=== PATIENT | male | born 1990 | race Caucasian/White ===

== ENCOUNTER 2020-04-30 16:20 | Inpatient (IN) | payer OTHER ==
[2020-04-30 17:31] VITALS: BMI 24.7
--- NOTE | 2020-04-30 19:05 | BHS.RME ---
Substance Use & Tx History - Substance Use History Heroin Substance amount: 10 bags Frequency of use: Daily Substance route: Injection (ex: intravenous or skin popping) Date of Last Use: 04/29/20 Cocaine- Powder Substance amount: $10 Frequency of use: Once a month Substance route: Inhalation (ex: sniffing or snorting), Smoking Date of Last Use: 04/27/20 Xanax Substance amount: 2-6 mg Frequency of use: Daily Substance route: Oral Date of Last Use: 04/30/20 Nicotine Substance amount: 20 Frequency of use: Daily Substance route: Smoking Date of Last Use: 04/30/20 - Last Treatment Date of last treatment: 1 yr ago Treatment type: Substance Use Disorder (THU) Where was last treatment: Rehab Physical/Psych/Mental Status - Behavior General Behavior: Increased activity (restlessness, agitation) Eye Contact: Normal - Cooperativeness Cooperativeness: Cooperative - Thinking Thought Processes: Goal Directed Thought content: Future oriented - Physical Health Problems Is patient presently having any pain?: No Does patient presently have any injuries (include location): No Does patient currently have a fever: No COWS - Scale Resting Pulse: 0= [place] 80 or Below Sweatin=Flushed/Facial Moisture Restless Observation: 1= Difficult to Sit Still Pupil Size: 2= Moderately Dilated Bone or Joint Aches: 1= Mild Discomfort (r/t withdrawal) Runny Nose/ Eye Tearin= Nasal Congestion GI Upset > 30mins: 2= Nausea/Diarrhea Tremor Observation: 2= Slight Tremor Visible Yawning Observation: 1= 1-2x During Session Anxiety or Irritability: 2=Irritable/Anxious Goose Flesh Skin: 0=Smooth Skin COWS Score: 14 CIWA Nausea/Vomitin Muscle Tremors: 3 Anxiety: 3 Agitation: 3 Paroxysmal Sweats: 3 (Increased facial moisture) Orientation: 1-Uncertain about Date Tacttile Disturbances: 1-Very Mild Itch/Numbness Auditory Disturbances: 0-None Visual Disturbances: 0-None Headache: 0-None Present CIWA-Ar Total Score: 17
--- NOTE | 2020-04-30 19:08 | HP ---
COWS - Scale Resting Pulse: 0= [place] 80 or Below Sweatin=Flushed/Facial Moisture (Increased facial moisture) Restless Observation: 1= Difficult to Sit Still Pupil Size: 2= Moderately Dilated (Pupils = 4 mm) Bone or Joint Aches: 1= Mild Discomfort (r/t withdrawal) Runny Nose/ Eye Tearin= Nasal Congestion GI Upset > 30mins: 2= Nausea/Diarrhea (Nausea w/o diarrhea) Tremor Observation: 2= Slight Tremor Visible Yawning Observation: 1= 1-2x During Session Anxiety or Irritability: 2=Irritable/Anxious Goose Flesh Skin: 0=Smooth Skin COWS Score: 14 CIWA Score Nausea/Vomitin Muscle Tremors: 3 Anxiety: 3 Agitation: 3 Paroxysmal Sweats: 3 (Increased facial moisture) Orientation: 1-Uncertain about Date Tacttile Disturbances: 1-Very Mild Itch/Numbness Auditory Disturbances: 0-None Visual Disturbances: 0-None Headache: 0-None Present CIWA-Ar Total Score: 17 - Admission Criteria [facility]ASAS Guidelines: Admission for Medically Managed Detox: Requires at least one of the followin. CIWA greater than 12 2. Seizures within the past 24 hours 3. Delirium tremens within the past 24 hours 4. Hallucinations within the past 24 hours 5. Acute intervention needed for co occurring medical disorder 6. Acute intervention needed for co occurring psychiatric disorder 7. Severe withdrawal that cannot be handled at a lower level of care (continued vomiting, continued diarrhea, abnormal vital signs) requiring intravenous medication and/or fluids 8. Patient presents the following: CIWA greater than 12 Admission Criteria Met: Admission criteria met Admission [facility] Chief Complaint: "Having withdrawals from heroin and xanax. Goal is not to use drugs ever again" Allergies/Adverse Reactions: Allergies Allergy/AdvReac Type Severity Reaction Status Date / Time No Known Allergies Allergy Verified 04/30/20 19:08 History of Present Illness: 30 yo presents w/ opioid and anxiolytic withdrawal, seeking detox. Has a current prescription for Suboxone. States hasn't taken in 2 months, despite picking up medication. [facility] he spoke to his provider and told he did not need/want Suboxone anymore. Patient consents to having provider called in a.m. [facility] provider is in [facility]. MOR: 0.0 UTox: + FAWN/FEN/MOP/BZO Denies seizures, blackouts, or overdoses. Heroin use use began at age 28. Currently uses 10 bags/day/IV. Denies sharing needles or works. Has a Narcan kit. Cocaine use since age 15. Currently using $10/month. Smokes and sniffs. Benzo use since age 27. Currently uses smokes 2-6 mg/day. Nicotine use since age 15. Currently smokes 1 PPD. States able to stay the 6 days for detox. PMHx: Nerve pain (hx Fx C-3) - on gabapentin MHHx: Anxious. PTSD. Depression. Denies thoughts of harming self or others. SHx: Homeless. Unemployed. Denies legal issues. Patient Name: Abhi Oconnor Date: 1990 Address: [address] [place] [address] Sex: Male Rx Written Rx Dispensed Drug Quantity Days Supply Prescriber Name Payment Method Dispenser 04/05/2020 04/10/2020 buprenorphine-naloxone 8-2 mg sl film 90 30 Geovanni, Larryza [employer] [facility] 03/13/2020 03/13/2020 buprenorphine-naloxone 8-2 mg sl film 90 30 Geovanni, Larryza [employer] [facility] 02/16/2020 02/16/2020 dextroamp-amphetamin 30 mg tab 30 30 Geovanni, Vj [employer] [facility] 02/07/2020 02/09/2020 buprenorphine-naloxone 8-2 mg sl film 90 30 GeovanniLarryza [employer] [facility] 01/05/2020 01/12/2020 dextroamp-amphetamin 30 mg tab 30 30 GeovanniLarryza [employer] [facility] 01/05/2020 01/12/2020 buprenorphine-naloxone 8-2 mg sl film 90 30 Geovanni, Azza [employer] [facility] 12/08/2019 12/12/2019 dextroamp-amphetamin 30 mg tab 30 30 GeovanniLarryza [employer] [facility] 12/08/2019 12/12/2019 buprenorphine-naloxone 8-2 mg sl film 90 30 GeovanniLarryza [employer] [facility] 11/10/2019 11/11/2019 dextroamp-amphetamin 30 mg tab 30 30 GeovanniVj [employer] [facility] 11/10/2019 11/10/2019 suboxone 8 mg-2 mg sl film 90 30 Vj Galarza [employer] [facility] 10/11/2019 10/11/2019 dextroamp-amphetamin 30 mg tab 30 30 Vj Galarza [employer] [facility] 10/11/2019 10/11/2019 suboxone 8 mg-2 mg sl film 90 30 Vj Galarza [employer] [facility] 09/15/2019 09/15/2019 buprenorphine-naloxone 8-2 mg sl film 90 30 Vj Galarza [employer] [facility] 09/15/2019 09/15/2019 dextroamp-amphetamin 30 mg tab 7 7 Vj Galarza [employer] [facility] 09/01/2019 09/01/2019 buprenorphine-naloxone 8-2 mg sl film 42 14 Vj Galarza [employer] [facility] 08/15/2019 08/15/2019 buprenorphine-naloxone 8-2 mg sl film 42 14 Vj Galarza [employer] [facility] 07/21/2019 07/21/2019 buprenorphine-naloxone 8-2 mg sl film 42 14 India Tolbert [employer] [facility] 06/30/2019 06/30/2019 buprenorphine-naloxone 8-2 mg sl film 42 14 [place] [employer] [facility] Date: 1990 Address: [address] [place] [address] Sex: Male Rx Written Rx Dispensed Drug Quantity Days Supply Prescriber Name Payment Method Dispenser 04/10/2020 04/11/2020 dextroamp-amphetamin 30 mg tab 30 30 Arias Howard A, DO [facility] Exam Limitations: No Limitations - Ebola screening Have you traveled outside of the country in the last 21 days: No (Denies COVID exposure) Have you had contact with anyone from an Ebola affected area: No Have you been sick,other than usual withdrawal symptoms: No Do you have a fever: No - Review of Systems Constitutional: Chills, Diaphoresis, Changes in sleep (Difficulty falling and staying asleep), Weight Stable EENT: reports: Nose Congestion, Dental Problems Respiratory: reports: No Symptoms reported Cardiac: reports: No Symptoms Reported GI: reports: Nausea : reports: No Symptoms Reported Musculoskeletal: reports: Other (Whole body hurts r/t withdrawal) Integumentary: reports: No Symptoms Reported Neuro: reports: Numbness (from sitting in chair) Endocrine: reports: Increased Thirst Hematology: reports: No Symptoms Reported Psychiatric: reports: Judgement Intact, Mood/Affect Appropiate, Agitated, Anxious, Depressed Patient History - PPD History Previous Implant?: Yes Documented Results: Negative w/o proof Implanted On Prior R Admission?: No PPD to be Administered?: Yes - Smoking Cessation Smoking history: Current every day smoker Have you smoked in the past 12 months: Yes Aproximately how many cigarettes per day: 20 Hx Chewing Tobacco Use: No Initiated information on smoking cessation: Yes 'Breaking Loose' booklet given: 04/30/20 - Substance & Tx. History Hx Alcohol Use: No Hx Substance Use: Yes Substance Use Type: Cocaine, Heroin, Opiates, Tranquilizers Hx Substance Use Treatment: Yes (detox, rehab, Suboxone) Admission Physical Exam BHS - Vital Signs Vital Signs: Vital Signs - 24 hr 04/30/20 17:29 Temperature 97.4 F L Pulse Rate 62 Respiratory 18 Rate Blood Pressure 120/70 - Physical General Appearance: Yes: Nourished, Mild Distress, Tremorous, Irritable, Sweating (Increased facial moisture), Anxious HEENTM: Yes: Hearing grossly Normal, Normocephalic, Normal Voice, NELDA (Pupils = 4 mm), Pharynx Normal, Nasal Congestion Respiratory: Yes: Lungs Clear, Normal Breath Sounds, No Respiratory Distress Neck: Yes: No masses,lesions,Nodules Breast: Yes: Breast Exam Deferred Cardiology: Yes: Regular Rhythm, Regular Rate, S1, S2, Bradycardia (HR: 58) Abdominal: Yes: Non Tender, Flat, Soft, Increased Bowel Sounds Genitourinary: Yes: Within Normal Limits Back: Yes: Normal Inspection Musculoskeletal: Yes: full range of Motion, Gait Steady Extremities: Yes: Normal Capillary Refill, Tremors 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 No increased warmth or erythema of track hernandez) Lymphatic: Yes: Within Normal Limits - Diagnostic (1) Opioid dependence with withdrawal Current Visit: Yes Status: Acute (2) Sedative, hypnotic or anxiolytic dependence with withdrawal, uncomplicated Current Visit: Yes Status: Acute (3) Cocaine dependence, uncomplicated Current Visit: Yes Status: Chronic (4) Nicotine dependence, unspecified, uncomplicated Current Visit: Yes Status: Chronic Qualifiers: Nicotine product type: cigarettes Qualified Code(s): F17.210 - Nicotine dependence, cigarettes, uncomplicated (5) History of cervical fracture Current Visit: Yes Status: Chronic (6) Neuropathy Current Visit: Yes Status: Chronic (7) Track hernandez due to intravenous drug abuse Current Visit: Yes Status: Chronic Cleared for Admission [facility] - Detox or Rehab [facility] Level of Care: Medically Managed Detox Regimen/Protocol: Ativan, Methadone Claeared for Rehab Admission: No Breathalyzer - Breathalyzer Breathalyzer: 0 Urine Drug Screen - Test Device Lot number: [id number] Expiration date: 11/15/21 - Control Is test valid?: Yes - Results Drug screen NEGATIVE: No Urine drug screen results: FAWN-Cocaine, FEN-Fentanyl, MOP-Opiates, BZO-B enzodiazepines Inpatient Rehab Admission - Rehab Decision to Admit Inpatient rehab admission?: No
[2020-04-30] MEDS ORDERED: cloNIDine HCL 0.1 MG TABLET PO PRN (19:35)
[2020-04-30] MEDS ORDERED: METHADONE HCL 10 MG TABLET (FOR DETOX USE ONLY) PO ONE (19:35)
[2020-04-30] MEDS ORDERED: MENTHOL/PHENOL 1 EACH UD MM PRN (19:35)
[2020-04-30] MEDS ORDERED: ACETAMINOPHEN 325 MG TABLET (FP) PO PRN ×2 (19:35)
[2020-04-30] MEDS ORDERED: LORazepam 1 MG TABLET PO PRN (19:35)
[2020-04-30] MEDS ORDERED: BISMUTH SUBSALICYLATE 524 MG/30 ML UD PO PRN (19:35)
[2020-04-30] MEDS ORDERED: IBUPROFEN 400 MG TABLET (FP) PO PRN (19:35)
[2020-04-30] MEDS ORDERED: MAG HYDROX/AL HYDROX/SIMETH 30 ML UNIT-DOSE CUP PO PRN (19:35)
[2020-04-30] MEDS ORDERED: MAGNESIUM HYDROX 2400MG/30ML ORAL SUSPENSION 30 ML CUP PO PRN (19:35)
[2020-04-30] MEDS ORDERED: MAGNESIUM CITRATE 300 ML BOTTLE PO PRN (19:35)
[2020-04-30] MEDS ORDERED: ONDANSETRON *ODT* 4 MG TABLET SL PRN (19:35)
[2020-04-30] MEDS ORDERED: BENZOCAINE 20 % GEL TUBE MM PRN (19:40)
[2020-04-30] MEDS ORDERED: LORazepam 2 MG TABLET PO ONE (20:00)
--- OUTSIDE RECORDS SUMMARY | 2020-04-30 20:59 | XMS ---
:1990 Author Organization [facility] Care Team Providers Name Role Phone MARIA ESTHER MARQUES, GATO MARQUES Unavailable Unavailable MICHAEL VETERINARY MEDICAL OFFICER, VETERINARY MEDICAL OFFICER Unavailable Unavailable MD Zoe Unavailable Unavailable MD Zoe Unavailable Unavailable MD Zoe Unavailable Unavailable MD Zoe Unavailable Unavailable Radhames Laguerre MD Unavailable Unavailable Radhames Laguerre MD Unavailable Unavailable Radhames Laguerre MD Unavailable Unavailable Radhames Laguerre MD Unavailable Unavailable Radhames Laguerre MD Unavailable Unavailable Radhames Laguerre MD Unavailable Unavailable Radhames Laguerre MD Unavailable Unavailable Radhames Laguerre MD Unavailable Unavailable Radhames Laguerre MD Unavailable Unavailable Radhames Laguerre MD Unavailable Unavailable Radhames Laguerre MD Unavailable Unavailable Radhames Laguerre MD Unavailable Unavailable Radhames Laguerre MD Unavailable Unavailable Radhames Laguerre MD Unavailable Unavailable Radhames Laguerre MD Unavailable Unavailable Radhames Laguerre MD Unavailable Unavailable Radhames Laguerre MD Unavailable Unavailable Radhames Laguerre MD Unavailable Unavailable Radhames Laguerre MD Unavailable Unavailable Radhames Laguerre MD Unavailable Unavailable Radhames Laguerre MD Unavailable Unavailable Radhames Laguerre MD Unavailable Unavailable Radhames Laguerre MD Unavailable Unavailable Radhames Laguerre MD Unavailable Unavailable Radhames Laguerre MD Unavailable Unavailable Radhames Laguerre MD Unavailable Unavailable Radhames Laguerre MD Unavailable Unavailable Radhames Laguerre MD Unavailable Unavailable Radhames Laguerre MD Unavailable Unavailable Radhames Laguerre MD Unavailable Unavailable Radhames Laguerre MD Unavailable Unavailable [place], Radhames MD Unavailable Unavailable [place], Radhames MD Unavailable Unavailable Shade, Radhames MD Unavailable Unavailable [place], Radhames MD Unavailable Unavailable [place], Radhames MD Unavailable Unavailable Shade, Radhames MD Unavailable Unavailable [place], Radhames MD Unavailable Unavailable Shade, Radhames MD Unavailable Unavailable Shade, Radhames MD Unavailable Unavailable [place], Radhames MD Unavailable Unavailable [place], Radhames MD Unavailable Unavailable [place], Radhames MD Unavailable Unavailable [place], Radhames MD Unavailable Unavailable [place], Radhames MD Unavailable Unavailable [place], Radhames MD Unavailable Unavailable [place], Radhames MD Unavailable Unavailable Shade, Radhames MD Unavailable Unavailable Shade, Radhames MD Unavailable Unavailable [place], Radhames MD Unavailable Unavailable [place], Radhames MD Unavailable Unavailable [place], Radhames MD Unavailable Unavailable Shade, Radhames MD Unavailable Unavailable [place], Radhames MD Unavailable Unavailable [place], Radhames MD Unavailable Unavailable RICKY MORROW MD Unavailable Unavailable PALMER MORROW, ZOE MORROW Unavailable Unavailable María HOLLEY MD, MD Unavailable Unavailable DULCE MORROW MD Unavailable Unavailable Cori RODRIGUEZ MD Unavailable Unavailable JERALD ARIAS Unavailable Unavailable SHEIKH ODALYS MD Unavailable Unavailable Ramy Strauss MD Unavailable Unavailable Ramy Strauss MD Unavailable Unavailable Ramy Strauss MD Unavailable Unavailable Ofe Horn MD Unavailable Unavailable Ofe Horn MD Unavailable Unavailable Ofe Horn MD Unavailable Unavailable Ofe Horn MD Unavailable Unavailable Ofe Horn MD Unavailable Unavailable MEMBONERISSA MARQUES PA Unavailable Unavailable Darby Unavailable Unavailable Cohen Unavailable Unavailable Cohen Unavailable Unavailable Cohen Unavailable Unavailable Cohen Unavailable Unavailable Cohen Unavailable Unavailable Re-disclosure Warning The records that you are about to access may contain information from federally- assisted alcohol or drug abuse programs. If such information is present, then the following federally mandated warning applies: This information has been disclosed to you from records protected by federal confidentiality rules (42 CFR part 2). The federal rules prohibit you from making any further disclosure of this information unless further disclosure is expressly permitted by the written consent of the person to whom it pertains or as otherwise permitted by 42 CFR part 2. A general authorization for the release of medical or other information is NOT sufficient for this purpose. The Federal rules restrict any use of the information to criminally investigate or prosecute any alcohol or drug abuse patient.The records that you are about to access may contain highly sensitive health information, the redisclosure of which is protected by Article 27-F of the [facility] Public Health law. If you continue you may haveaccess to information: Regarding HIV / AIDS; Provided by facilities licensed or operated by the [facility] Office of Mental Health; or Provided by the [facility] Office for People With Developmental Disabilities. If such information is present, then the following [facility] mandated warning applies: This information has been disclosed to you from confidential records which are protected by state law. State law prohibits you from making any further disclosure of this information without the specific written consent of the person to whom it pertains, or as otherwise permitted by law. Any unauthorized further disclosure in violation of state law may result in a fine or [place] health [facility] facility sentence or both. A general authorization for the release of medical or other information is NOT sufficient authorization for further disclosure. Allergies and Adverse Reactions Type Description Substance Reaction Status Data Source(s ) D No Known Allergies No Known Allergies [facility] Drug allergy No Known Allergies No Known Allergies [facility] No Information No Information No Information [address] Encounters Encounter Providers Location Date Indications Data Source(s ) Emergency Attender: Luciano MONROY XR-ED 06/02/2019 ERA BRENDA Horn MD 04:45:50 AM [facility] 06/02/2019 07:56:00 AM EDT ERA Patient discharged. Outpatient Attender: GEMMA 05/06/2019 07:35:00 [facility] RODRIGUEZ MD [facility] Outpatient Attender: GEMMA 04/29/2019 07:26:00 [facility] RODRIGUEZ MD [facility] Emergency Attender: CARLOS 12/23/2018 07:31:00 REQ DETOX [facility] MDConsultant: AM EDT - 12/23/2018 [facility] LINDSAY MARQUES 10:25:00 AM EDT REQ DETOX Patient discharged. Emergency Attender: Raman Strauss 12/22/2018 REQUESTING DET OX [facility] MDConsultant: LINDSAY 03:50:00 PM [facility] 12/22/2018 [facility] 05:20:00 PM EDT REQUESTING DETOX Patient discharged. Inpatient Attender: HEATHADONISJerry 11/30/2018 [facility] MDAdmitter: 02:25:00 PM EDT - UNCOMPLICAT ED [facility] 12/14/[address] [facility] MDConsultant: 09:50:00 AM EDT RENNY MARQUES OPIOID DEPENDENCE, UNCOMPLICATED Inpatient Attender: ANSHU GARCÍA 11/23/2018 MAJOR DEPRE SSIVE [facility] MDAttender: CARLOS HOLLEY 04:06:00 PM EDT - DIS ORDER, SINGLE Regional MDAdmitter: ANSHU 11/30/2018 EPISODE, UNSPECI [facility] MAXIMINOSUSHMA MDConsultant: 02:08:00 PM EDT Edilma Polanco MDConsultant: Nate CohenConsultant: Gato Laguerre MDConsultant: GATO MAYO PAConsultant: LUIS MIGUEL PERRYLIKOLBY NPConsultant: SO RIVERA MDConsultant: CHRIS CHAKRABORTY MDConsultant: Enrique Pastor MAJOR DEPRESSIVE DISORDER, SINGLE EPISOD E, [facility]NSPECI [facility]2018 12:00:00 AM eCW2 [facility] [address] [place] [address] Miracle 05/18/2018 12:00:00 AM eCW2 ([facility] ) [address] [place] [address] Sophieabamiguel a 05/11/2018 12:00:00 AM eCW2 ([facility] ) [address] [place] [address] Sophieabamiguel a 05/04/2018 12:00:00 AM eCW2 ([facility] ) [address] [place] [address] Sophieabamiguel a 04/27/2018 12:00:00 AM eCW2 ([facility] ) [address] [place] [address] Sophieabamiguel a 04/21/2018 12:00:00 AM eCW2 ([facility] ) [facility] Sophieabamiguel a 04/20/2018 12:00:00 AM eCW2 ([facility] ) [facility] [place] 03/23/2018 12:00:00 AM eCW2 ([facility] ) [address] [place] 03/16/2018 12:00:00 AM eCW2 ([facility] ) [address] [place] 03/12/2018 12:00:00 AM eCW2 ([facility] ) [address] [place] 03/10/2018 12:00:00 AM eCW2 ([facility] ) [address] [place] 03/10/2018 12:00:00 AM eCW2 ([facility] ) [address] [place] 03/09/2018 12:00:00 AM eCW2 ([facility] ) [address] [place] 02/23/2018 12:00:00 AM eCW2 ([facility] ) [address] [place] 02/16/2018 12:00:00 AM eCW2 ([facility] ) [address] [place] 02/16/2018 12:00:00 AM eCW2 ([facility] ) [address] [place] 02/09/2018 12:00:00 AM eCW2 ([facility] ) [address] [place] 02/04/2018 12:00:00 AM eCW2 ([facility] ) [address] [place] 02/04/2018 12:00:00 AM eCW2 ([facility] ) [address] [place] 02/02/2018 12:00:00 AM eCW2 ([facility] ) [address] [place] 01/29/2018 12:00:00 AM eCW2 ([facility] ) [address] [place] 01/25/2018 12:00:00 AM eCW2 ([facility] ) [address] 01/21/2018 12:00:00 AM eCW2 ([facility] ) [address] 01/11/2018 12:00:00 AM eCW2 ([facility] ) Immunizations Vaccine Date Status Description Data Source(s) No Known Immunizations completed eCW2 ([facility]) Medications Medication Brand Start Product Dose Route Administrative Pharmacy [facility] Indications Reaction Description Data Name Date Form Instructions Instructions Source(s) Naproxen Napros 06/02/ Tablet 500.0 Oral [place] 500 MG Oral yn 500 2019 mg Presby ravi Tablet mg 05:46: an - Naprosyn oral 46 AM Cao 500 mg oral tablet [facility] Amoxicillin amoxic 24/ 500.0 Oral [place] 500 MG Oral illin 2019 mg Presbyt roc Tablet 500 mg 05:46: an - amoxicillin oral 31 AM Cao 500 mg oral tablet [facility] Unknown complet eCW2 Medications ed ([facility]) Insurance Providers Payer name Policy type Policy ID Covered Covered republican's Policy P doris / Coverage republican ID relationship to Raphael Inf ormation type raphael [facility] [id number] SP [id number] NON CAP OPTUM [id number] SP [id number] [facility] [id number] SP [id number] ESSENTIAL PLUS [facility] [id number] HEALTH PLAN [facility] [id number] SP [id number] ESSENTIAL PLUS OPTUM [id number] SP [id number] [facility] OPTUM [id number] SP [id number] 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 01/22/2018 eCW2 ([place] hepatitis B virus hepatitis B virus [facility] F11.99 Opioid use Opioid use Problem 01/21/2018 eCW2 ([place] disorder disorder 12:00:[facility] F17.200 Tobacco use Tobacco use Problem 01/21/2018 eCW2 ([place] disorder disorder 12:00:00 [facility]) B18.2 Chronic hepatitis Chronic hepatitis Problem 01/21/2018 eCW2 ([place] C with hepatic C with hepatic 12:00:00 [facility] coma coma EDT Care) F17.200 Nicotine NICOTINE Diagnosis 12/23/2018 [facility] dependence, DEPENDENCE, 07:31:00 AM Regional unspecified, UNSPECIFIED, EDT Hospital o f uncomplicated UNCOMPLICATED [facility] Z76.5 Malingerer MALINGERER Diagnosis 12/23/2018 [facility] [conscious [CONSCIOUS 07:31:00 AM Regional simulation] SIMULATION] EDT [facility] K08.89 Other specified OTHER SPECIFIED Diagnosis 12/23/2018 [facility] udson disorders of teeth DISORDERS OF TEETH 07:31:00 AM Regional and supporting AND SUPPORTING EDT Hospit al of structures STRUCTURES [facility] Z86.59 Personal history PERSONAL HISTORY Diagnosis 12/23/2018 [place] of other mental OF OTHER MENTAL 07:31:00 AM Reg ional and behavioral AND BEHAVIORAL EDT Hospit al of disorders DISORDERS [facility] F19.20 Other psychoactive OTHER PSYCHOACTIVE Diagnosis [facility] substance SUBSTANCE 07:31:00 AM Regional dependence, DEPENDENCE, EDT Hospital of uncomplicated UNCOMPLICATED [facility] F39 Unspecified mood UNSPECIFIED MOOD Diagnosis 12/22/2018 [place] [affective] [AFFECTIVE] 03:50:00 PM Regional disorder DISORDER EDT [facility] F14.10 Cocaine abuse, COCAINE ABUSE, Diagnosis 12/22/2018 [facility] UNCOMPLICATED 03:50:00 PM Regiona l EDT [facility] F11.229 Opioid dependence OPIOID DEPENDENCE Diagnosis 12/22/2018 [facility] with intoxication, WITH INTOXICATION, 03:50:00 PM Regional unspecified UNSPECIFIED EDT [facility] Z71.51 Drug abuse DRUG ABUSE Diagnosis 11/30/2018 [facility] counseling and COUNSELING AND 02:25:00 PM Regio nal surveillance of SURVEILLANCE OF EDT Hosp ital of drug abuser DRUG ABUSER [facility] F17.219 Nicotine NICOTINE Diagnosis 11/30/2018 [facility], DEPENDENCE, 02:25:00 PM Regional cigarettes, with CIGARETTES, W UNSP EDT Hospital of unspecified DISORDERS 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 F32.9 Major depressive MAJOR DEPRESSIVE Diagnosis 11/30/2018 [place] disorder, single DISORDER, SINGLE 02:25:00 PM R egional episode, EPISODE, EDT Hospital of unspecified UNSPECIFIED 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 sedative, hypnotic or anxiolytic-induced disorder F14.99 Cocaine use, COCAINE USE, UNSP Diagnosis 11/30/2018 [facility] unspecified with WITH UNSPECIFIED 02:25:00 PM R egional unspecified COCAINE-INDUCED EDT Hospital of cocaine-induced DISORDER [facility] disorder F41.9 Anxiety disorder, ANXIETY DISORDER, Diagnosis 11/30/2018 [place] unspecified UNSPECIFIED 02:25:00 PM Regional EDT [facility] B19.20 Unspecified viral UNSPECIFIED VIRAL Diagnosis 11/30/2018 [facility] hepatitis C HEPATITIS C 02:25:00 PM Regional without hepatic WITHOUT HEPATIC EDT Hosp ital of coma COMA [facility] Z59.0 Homelessness HOMELESSNESS Diagnosis 11/24/2018 [place] 10:18:00 AM Regional EDT [facility] F17.210 Nicotine NICOTINE Diagnosis 11/24/2018 [facility], DEPENDENCE, 10:18:00 AM Regional cigarettes, CIGARETTES, EDT Hospital of uncomplicated UNCOMPLICATED 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 F12.20 Cannabis CANNABIS Diagnosis 11/24/2018 [facility], DEPENDENCE, 10:18:00 AM Regional uncomplicated UNCOMPLICATED EDT [facility] M54.89 Other dorsalgia OTHER DORSALGIA Diagnosis 11/24/2018 [facility] udson 10:18:00 AM [facility] EDT Hospital [facility] M54.2 Cervicalgia CERVICALGIA Diagnosis 11/24/2018 [facility] 10:18:00 AM [facility] EDT [facility] G89.29 Other chronic pain OTHER CHRONIC PAIN Diagnosis 9 [facility] 10:18:00 AM [facility] EDT [facility] F41.8 Other specified OTHER SPECIFIED Diagnosis 11/24/2018 [facility] anxiety disorders ANXIETY DISORDERS 10:18:00 AM [facility] EDT Hospital [facility] F14.20 Cocaine COCAINE Diagnosis 11/24/2018 [facility] dependence, DEPENDENCE, 10:18:00 AM Regional uncomplicated UNCOMPLICATED EDT Hospital [facility] R45.851 Suicidal ideations SUICIDAL IDEATIONS Diagnosis 9 [facility] 10:18:00 AM [facility] EDT [facility] F11.20 Opioid dependence, OPIOID DEPENDENCE, Diagnosis 9 [facility] uncomplicated UNCOMPLICATED 10:18:00 AM [facility] F33.8 Other recurrent OTHER RECURRENT Diagnosis 11/24/2018 [facility] depressive DEPRESSIVE 10:18:00 AM [facility] disorders DISORDERS EDT [facility] Surgeries/Procedures Procedure Description Date Indications Data Source(s) No Known procedures No Known procedures e [facility] ([facility]) Results ID Date Data Source [id number] 05/08/2019 07:23:00 PM EDT [facility] Name Value Range Interpretation Description Data Sup porting Code Source(s) Document(s ) HCV QNT Not Detected () [facility] BY NAAT IU/mL [place] (IU/mL) [facility] HCV QNT Not Detected () [facility] BY NAAT [place] ([facility] - IU/mL) [place] [facility] Result Units: log IU/mL HCV QNT BY NAAT INTERPRETATION Not Detected Not Detected [facility] INTERPRETIVE INFORMATION: HCV by Quantit ative NAATNormal range for this assay is "Not Detected".The quantitative range of this assay is 10 - 100,000,000IU/mL (1.0 - 8.0 log IU/mL).Lower limit of quantitati on (LLoQ):10 IU/mL (1.0 log IU/mL)LLoQ values do not apply to diluted specimens.A resu lt of "Not Detected" does not rule out the presenceof inhibitors in the patient spe cimen or hepatitis C virusRNA concentrations below the level of detection of thetest. Care should be taken when interpreting any singleviral load determination.This test should not be used for blood donor screening,associated re-entry protocols, or for screening Human Cell,Tissues and Cellular Tissue-Based Products (HCT/P).P erformed by [employer],[address] [place] [address],[place] [address] [email or web address] lacy, Nixon Sharma MD, Lab. Director ID Date Data Source [id number] 05/06/2019 01:15:00 PM EDT [facility] Name Value Range Interpretation Code Description Data Janee rce(s) Supporting Document(s ) GLUCOSE 79 mg/dL 74-106 [facility] BUN 19 mg/dL 7-18 Above high normal [facility] 0.939 EST.GLOMERULAR FILTRATION RATE 94.32 mL/min >=60.0 [facility] EST.GFR 114.13 mL/min >=60.0 [facility] COCKCROFT-GAULT CRCLR 81.35 mL/min >=60.00 [facility] 0.939 BUN/CREAT RATIO 20.2 6.0-20.0 Above high normal [facility] SODIUM 142 mmol/L 135-145 [facility] POTASSIUM 4.8 mmol/L 3.5-5.1 [facility] CHLORIDE 107 mmol/L 98-107 [facility] CO2 29 mmol/L 21-32 [facility] ANION GAP 6.0 mmol/L 8-20 Below low normal [facility] AST 39 U/L 15-37 Above high normal [facility] ALK PHOS 76 U/L 45-117 [facility] TOTAL BILIRUBIN 0.5 mg/dL 0.2-1.0 [facility] TOTAL PROTEIN 7.0 g/dL 6.4-8.2 [facility] ALBUMIN 4.1 g/dL 3.4-5.0 [facility] GLOBULIN 2.9 g/dL 2.6-3.8 [facility] A/G RATIO CALCULATION 1.4 1.0-5.0 [facility] CALCIUM 9.1 mg/dL 8.5-10.1 [facility] ALTI 35 U/L 16-61 [facility] OSMOLALITY CALCULATION 284 mos/kg 273-304 [facility] ID Date Data Source [id number] 04/29/2019 02:09:00 PM EDT [facility] Name Value Range Interpretation Description Data Sup porting Code Source(s) Document(s ) HEPATITIS C REACTIVE NONREACTIVE [facility] A repeatedly reactive result indicates p ast or presentHepatitis C Virus (HCV) infection or possibly a carrierstate, bu t does not substantiate infectivity or immunity.However, a patient with a repea tedly reactive result shouldbe considered infectious.With the HCV antibody test, f alse positive resultscan occur. The absence of antibodies to HCV does not ruleout in fection with HCV. Supplemental testing is recommended. ID Date Data Source [id number] 04/29/2019 01:42:00 PM EDT [facility] Name Value Range Interpretation Description Data Sup porting Code Source(s) Document(s ) COLOR IQ YELLOW YELLOW [facility] CLARITY IQ CLEAR CLEAR [facility] SPECIFIC 1.026 1.001-1.03 [facility] GRAVITY IQ 5 [facility] pH IQ 5.0 4.6-8.0 [facility] LEUKOCYTES IQ NEGATIVE NEGATIVE [facility] Eder/uL [facility] NITRITE IQ NEGATIVE Negative [facility] PROTEIN IQ NEGATIVE Negative [facility] mg/dL [facility] GLUCOSE IQ NEGATIVE Negative [facility] mg/dL [facility] KETONES IQ NEGATIVE Negative [facility] mg/dL [facility] UROBILINOGEN NEGATIVE Negative [facility] IQ E.U./dL [facility] BILIRUBIN IQ NEGATIVE NEGATIVE [facility] mg/dL [facility] BLOOD IQ NEGATIVE NEGATIVE [facility] ID Date Data Source [id number] 04/29/2019 02:00:00 PM EDT [facility] Name Value Range Interpretation Description Data Sup porting Code Source(s) Document(s ) HIV AG/AB NON-REACT NONREACTIVE [facility] COMBO DARRION [facility] Limitations of this test1. Samples that result initially reactive will be repeatedin duplicate. Repeatedly reactive samples a re consideredpresumptively positive and will be sent fordifferentiated confirmation t o the Reference Lab.In specimens giving indeterminate supplemental testresults, additional testing will be added on bythe Reference Lab and the suggestion of test ing of asubsequent sample drawn at a later date is recommended.Confirmatory results must be considered in making adiagnosis related to HIV infection.2. A negative t est result does not exclude the possibilityof exposure to or infection with HIV. HIV a ntibodiesand/or P24 antigen may be undetectable in some stagesof the infect ion and in some clinical conditions.3. A person who has participated in an HIV [facility] study maydevelop antibodies to the vaccine and may or may not beinfected wi th HIV. ID Date Data Source [id number] 04/29/2019 01:36:00 PM EDT [facility] Name Value Range Interpretation Description Data Sup porting Code Source(s) Document(s ) HEMOGLOBIN A1C 5.2 % 4.0-6.3 [facility] NOTE: NEW INTERPRETATION GUIDELINES OF 2010NON-DIABETIC 4.0 - 5.6%PRE-DIABETIC 5.7 - 6.4%DIAB ETES MELLLITUS > OR = TO 6.5% (DIAGNOSIS SHOULD BECONFIRMED WITH REPEAT TESTING)N OTE:1.CONDITIONS THAT SHORTEN RED CELL SURVIVAL MAY YIELDFALSELY LOW RESULTS.2. IRON DEFICIENCY ANEMIA MAY YIELD FALSELY HIGH RESULTS ID Date Data Source [id number] 04/29/2019 01:29:00 PM EDT [facility] Name Value Range Interpretation Description Data Sup porting Code Source(s) Document(s ) RPR NON-REACTI NONREACTIVE [facility] ID Date Data Source [id number] 04/29/2019 01:18:00 PM EDT [facility] Name Value Range Interpretation Code Description Data Janee rce(s) Supporting Document(s ) GLUCOSE 70 mg/dL 74-106 Below low normal [facility] BUN 19 mg/dL 7-18 Above high normal [facility] 0.932 EST.GLOMERULAR FILTRATION RATE 95.15 mL/min >=60.0 [facility] EST.GFR 115.14 mL/min >=60.0 [facility] COCKCROFT-GAULT CRCLR 81.96 mL/min >=60.00 [facility] 0.932 BUN/CREAT RATIO 20.3 6.0-20.0 Above high normal [facility] SODIUM 142 mmol/L 135-145 [facility] POTASSIUM 4.4 mmol/L 3.5-5.1 [facility] CHLORIDE 107 mmol/L 98-107 [facility] CO2 29 mmol/L 21-32 [facility] ANION GAP 6.0 mmol/L 8-20 Below low normal [facility] AST 50 U/L 15-37 Above high normal [facility] ALK PHOS 89 U/L 45-117 [facility] TOTAL BILIRUBIN 0.4 mg/dL 0.2-1.0 [facility] TOTAL PROTEIN 7.4 g/dL 6.4-8.2 [facility] ALBUMIN 4.2 g/dL 3.4-5.0 [facility] GLOBULIN 3.2 g/dL 2.6-3.8 [facility] A/G RATIO CALCULATION 1.3 1.0-5.0 [facility] CALCIUM 9.1 mg/dL 8.5-10.1 [facility] ALTI 34 U/L 16-61 [facility] OSMOLALITY CALCULATION 284 mos/kg 273-304 [facility] ID Date Data Source [id number] 04/29/2019 01:18:00 PM EDT [facility] Name Value Range Interpretation Description Data Sup porting Code Source(s) Document(s ) CHOLESTEROL 169 0-200 [facility] mg/dL [facility] TRIGLYCERIDES 170 30-[address] [facility] mg/dL [facility] HDL CHOL 57 mg/dL 40-60 [facility] LDL CHOL CALC 78 mg/dL 30-130 [facility] VLDL CHOL CALC 34 mg/dL 8-32 Above high normal [facility] CHD RISK 2.96 [facility] REFERENCE RANGE--MALEINTERPRETATION OF C HOLESTEROL/HDL RATIORISK CHOL/HDL1/2 AVERAGE 3. 43AVERAGE 4.972X AVERAGE 9.553X AVERAGE 23.99NOTE: LDL VLDL CHOLESTEROL CANNOT BE ACCURATELYCALCULATED WHEN THE PATIENT'S TRIGLYCERIDESARE >400 MG/DL. ID Date Data Source [id number] 04/29/2019 12:59:00 PM EDT [facility] Name Value Range Interpretation Description Data Sup porting Code Source(s) Document(s ) WBC 4.50 K/uL 4.00-10.[address] RBC 5.34 M/uL 4.63-6.08 [facility] HGB 16.0 g/dL 13.7-17.5 [facility] HCT 49.2 % 40.1-51.0 [facility] MCV 92.1 fL 80.0-96.0 [facility] MCH 30.0 pg 27.0-33.2 [facility] MCHC 32.5 g/dL 32.2-35.5 [facility] RDW 12.8 % 11.6-14.4 [facility] PLT 260 K/uL 150-450 [facility] MPV 10.8 fL 8.5-11.8 [facility] RODRICK% 55.3 % 38.9-69.8 [facility] LYM% 30.9 % 21.7-51.7 [facility] MONO% 9.1 % 4.7-12.2 [facility] EOS% 3.6 % 0.8-7.0 [facility] BASO% 0.9 % 0.1-1.2 [facility] IMMATURE 0.2 % 0.1-0.3 [facility] GRANULOCYTE% [facility] The immature granulocyte count is an enu meration ofmetamyelocytes, myelocyte, and promyelocytes present [facility] blood sa mple. It does not include band neutrophilforms. ABSOLUTE NEUTROPHIL COUNT 2.49 K/uL 1.46-7.12 [facility] LYM# 1.39 K/uL 0.92-4.30 [facility] MONO# 0.41 K/uL 0.24-0.86 [facility] EOSIN# 0.16 K/uL 0.04-0.54 [facility] BASO# 0.04 K/uL 0.01-0.08 [facility] IMMATURE GRANULOCYTES# 0.01 K/uL 0.01-0.03 [facility] NRBC 0.0 /100WBC 0.0-0.2 [facility] Procedure Social History Code Duration Value Status Description Data Source(s ) Smoking Unknown if ever completed Unknown if ever eCW2 ([facility] smoked smoked Health Care) Vital Signs ID Date Data Source UNK Name Value Range Interpretation Code Description Data Source(s) Mean blood 96 mm[Hg] 96 mm[Hg] [place] [facility] Diastolic blood 75 mm[Hg] Normal (applies to 75 mm[Hg] [place] [facility] - pressure non-numeric results) [facility] Systolic blood 139 mm[Hg] Normal (applies to 139 mm[Hg] [place] [facility] - pressure non-numeric results) [facility] Respiratory rate 20 br/min Normal (applies to 20 br/min [place] [facility] - non-numeric results) [facility] Peripheral Pulse 55 bpm Below low normal 55 bpm [place] [facility] - Rate [facility] Body temperature - 98.5 [degF] 98.5 [degF] [place] [facility] - Temporal artery [facility] Mean blood 101 mm[Hg] 101 mm[Hg] [place] [facility] [place] pressure [facility] Diastolic blood 87 mm[Hg] Normal (applies to 87 mm[Hg] [place] [facility] - pressure non-numeric results) [facility] Systolic blood 128 mm[Hg] Normal (applies to 128 mm[Hg] [place] [facility] - pressure non-numeric results) [facility] Respiratory rate 20 br/min Normal (applies to 20 br/min [place] [facility] - non-numeric results) [facility] Peripheral Pulse 50 bpm Below low normal 50 bpm [place] [facility] - Rate [facility] Body temperature - 97.7 [degF] 97.7 [degF] [place] [facility] - Temporal artery [facility] Body height 175.000 cm 175.000 cm [place] [facility] - [facility] Body weight 79.000 kg 79.000 kg [place] [facility] - Measured [facility] Body surface area 1.96 1.96 [place] [facility] - [facility] Body weight 79 kg 79 kg [place] [facility] - Measured [facility] Body height [address] [facility] Mean blood 126 mm[Hg] 126 mm[Hg] [place] [facility] - pressure [facility] Diastolic blood 100 mm[Hg] Above high normal 100 mm[Hg] [place] [facility] - pressure [facility] Systolic blood 178 mm[Hg] Above high normal 178 mm[Hg] [place] [facility] - pressure [facility] Respiratory rate 16 br/min Normal (applies to 16 br/min [place] [facility] - non-numeric results) [facility] Peripheral Pulse 61 bpm Normal (applies to 61 bpm [place] [facility] - Rate non-numeric results) [facility] Body temperature - 97 [degF] 97 [degF] [place] [facility] - Temporal artery [facility] Patient Treatment Plan of Care Planned Activity Planned Date Details Description Data Source (s) Naproxen 500 MG Oral 06/02/2019 05:46:46 [place] [facility] - Tablet AM EDT [facility] Amoxicillin 500 MG Oral 06/02/2019 05:46:31 [place] [facility] - Tablet AM EDT [facility]
[2020-04-30] MEDS: LORazepam 2 MG TABLET PO SCH (22:41)
[2020-04-30] MEDS: GABAPENTIN 300 MG CAPSULE PO SCH (22:41)
[2020-04-30] MEDS: THIAMINE HCL 100 MG TABLET (FP) PO SCH (22:42)
[2020-04-30] MEDS: MELATONIN 5 MG TABLETS PO SCH (22:42)
[2020-05-01] MEDS: GABAPENTIN 300 MG CAPSULE PO SCH ×3 (06:50→22:20)
[2020-05-01] MEDS: LORazepam 2 MG TABLET PO SCH ×4 (06:50→22:20)
[2020-05-01] MEDS ORDERED: METHADONE HCL 10 MG TABLET (FOR DETOX USE ONLY) ONE (09:42)
[2020-05-01] MEDS ORDERED: METHADONE HCL 5 MG TABLET (FOR DETOX USE ONLY) ONE (09:42)
--- NOTE | 2020-05-01 09:44 | EKG ---
Test Reason : Blood Pressure : / mmHG Vent. Rate : 052 BPM Atrial Rate : 059 BPM P-R Int : 102 ms QRS Dur : 086 ms QT Int : 462 ms P-R-T Axes : -02 067 036 degrees QTc Int : 429 ms SINUS BRADYCARDIA WITH SHORT AL OTHERWISE NORMAL ECG NO PREVIOUS ECGS AVAILABLE Confirmed by Miguel Thompson ([id number]) on 05/01/2020 9:43:38 AM Referred By: Confirmed By:Miguel Thompson
[2020-05-01] MEDS ORDERED: METHADONE (DETOX) 20 MG, METHADONE (DETOX) 5 MG PO ONE (10:00)
[2020-05-01 10:25] LABS: ALK PHOS 75 U/L (45-117); ANION GAP 4 MMOL/L (8-16); CALCIUM 8.5 mg/dL (8.5-10.1); CHLORIDE 108 mmol/L (98-107); CO2 31 mmol/L (21-32); CREATININE 0.9 mg/dL (0.55-1.3); GLUCOSE,RANDOM 116 mg/dL (74-106); POTASSIUM 4.2 mmol/L (3.5-5.1); SGOT/AST 20 U/L (15-37); SGPT/ALT 19 U/L (13-61); SODIUM 143 mmol/L (136-145); TOT PROT 5.9 g/dl (6.4-8.2)
[2020-05-01 10:27] LABS: HEMATOCRIT 38.6 % (35.4-49); HEMOGLOBIN 12.9 GM/dL (11.7-16.9); MCH 29.6 pg (25.7-33.7); MCHC 33.5 g/dl (32.0-35.9); MEAN CELL VOLUME 88.4 fl (80-96); MEAN PLT VOLUME 9.1 fl (7.5-11.1); PLATELET COUNT 211 K/MM3 (134-434); RBC 4.37 M/mm3 (4.00-5.60); RDW 13.6 % (11.9-15.9); WHITE BLOOD COUNT 5.2 K/mm3 (4.0-10.0)
[2020-05-01 10:36] LABS: BILIRUBIN,TOTAL < 0.1 mg/dL (0.2-1)
[2020-05-01] MEDS: PRENATAL VITAMINS W/ FOLIC ACID TABLET (FP) PO SCH (10:41)
[2020-05-01] MEDS: NICOTINE 21 MG/24 HOURS TOPICAL PATCH TD SCH (10:41)
--- NOTE | 2020-05-01 12:38 | PN ---
S CIWA - CIWA Score Nausea/Vomitin-Mild Nausea/No Vomiting Muscle Tremors: 3 Anxiety: 3 Agitation: 3 Paroxysmal Sweats: No Perspiration Orientation: 0-Oriented Tacttile Disturbances: 0-None Auditory Disturbances: 0-None Visual Disturbances: 2-Mild Sensitivity Headache: 0-None Present CIWA-Ar Total Score: 12 BHS COWS - Scale Resting Pulse: 0= [place] 80 or Below Sweatin= Chills/Flushing Restless Observation: 0= Sits Still Pupil Size: 1= Pupils >than Normal Bone or Joint Aches: 1= Mild Discomfort Runny Nose/ Eye Tearin= None GI Upset > 30mins: 2= Nausea/Diarrhea Tremor Observation of Outstretched Hands: 2= Slight Tremor Visible Yawning Observation: 0= None Anxiety or Irritability: 2=Irritable/Anxious Goose Flesh Skin: 3=Piloerection COWS Score: 12 S Progress Note (SOAP) Subjective: 30 years old male was admitted on 04/30/20 for alcohol and opiate withdrawal sx management treating with ativan and methadone detox regiments chart reviewed mr hayes consent to call his suboxone provider who prescribed suboxone 8-2mg po tid last 30days filled 04/05/20 negative suboxone urine tox begin methadone regiment received request from admission provider to call suboxone provider on behave of mr hayes that mr hayes wish to discontinue suboxone treatment open possibility for methadone maintenance marketing program coordinator call [phone] Dr Vj Galarza left massage that mr hayes wish methadone maintenance program Objective: 05/01/20 12:38 Vital Signs - 24 hr 04/30/20 04/30/20 04/30/20 17:29 19:25 20:23 Temperature 97.4 F L 97.4 F L 97.7 F Pulse Rate 62 62 54 L Respiratory 18 18 18 Rate Blood Pressure 120/70 120/70 127/84 O2 Sat by Pulse 100 Oximetry (%) 04/30/20 05/01/20 05/01/20 21:02 06:32 08:26 Temperature 97.8 F 97.3 F L 96.6 F L Pulse Rate 65 71 58 L Respiratory 18 18 18 Rate Blood Pressure 112/77 98/65 113/68 O2 Sat by Pulse 96 100 Oximetry (%) Laboratory Tests 05/01/20 05/01/20 08:00 08:00 WBC 5.2 RBC 4.37 Hgb 12.9 Hct 38.6 MCV 88.4 MCH 29.6 MCHC 33.5 RDW 13.6 Plt Count 211 MPV 9.1 Sodium 143 Potassium 4.2 Chloride 108 H Carbon Dioxide 31 Anion Gap 4 L BUN 11.0 Creatinine 0.9 Est GFR (CKD-EPI)AfAm 131.44 Est GFR (CKD-EPI)NonAf 113.41 Random Glucose 116 H Calcium 8.5 Total Bilirubin < 0.1 L AST 20 ALT 19 cocoAlkaline Phosphatase 75 Total Protein 5.9 L Albumin 3.0 L 05/01/20 12:39 covid pending Assessment: 05/01/20 12:39 alcohol and opiate withdrawal Plan: ativan and methadone regiment
[2020-05-01] MEDS: MELATONIN 5 MG TABLETS PO SCH (22:20)
[2020-05-01] MEDS: THIAMINE HCL 100 MG TABLET (FP) PO SCH (22:20)
[2020-05-02] MEDS: LORazepam 1 MG TABLET PO SCH ×4 (05:21→22:12)
[2020-05-02] MEDS: GABAPENTIN 300 MG CAPSULE PO SCH ×3 (05:21→22:12)
[2020-05-02] MEDS ORDERED: METHADONE HCL 10 MG TABLET (FOR DETOX USE ONLY) PO ONE (10:00)
[2020-05-02] MEDS: PRENATAL VITAMINS W/ FOLIC ACID TABLET (FP) PO SCH (10:19)
[2020-05-02] MEDS: NICOTINE 21 MG/24 HOURS TOPICAL PATCH TD SCH (10:19)
--- NOTE | 2020-05-02 11:31 | PN ---
[facility] CIWA - CIWA Score Nausea/Vomitin Muscle Tremors: 2 Anxiety: 2 Agitation: 2 Paroxysmal Sweats: No Perspiration Orientation: 0-Oriented Tacttile Disturbances: 1-Very Mild Itch/Numbness Auditory Disturbances: 0-None Visual Disturbances: 0-None Headache: 2-Mild CIWA-Ar Total Score: 11 S COWS - Scale Resting Pulse: 0= [place] 80 or Below Sweatin= No chills or Flushing Restless Observation: 0= Sits Still Pupil Size: 1= Pupils >than Normal Bone or Joint Aches: 2= Severe Diffuse Aches Runny Nose/ Eye Tearin= Nasal Congestion GI Upset > 30mins: 2= Nausea/Diarrhea Tremor Observation of Outstretched Hands: 2= Slight Tremor Visible Yawning Observation: 1= 1-2x During Session Anxiety or Irritability: 2=Irritable/Anxious Goose Flesh Skin: 0=Smooth Skin COWS Score: 11 [facility] Progress Note (SOAP) Subjective: alert,irritable,anxious,interrupted sleep,pain in the body and back, Objective: 05/02/20 11:30 Vital Signs Temperature 97.5 F L 05/02/20 08:35 Pulse Rate 68 05/02/20 08:35 Respiratory Rate 18 05/02/20 08:35 Blood Pressure 115/64 05/02/20 08:35 O2 Sat by Pulse Oximetry (%) 100 05/02/20 06:22 Assessment: 05/02/20 11:31 withdrawal symptom Plan: continue detox methadone and ativan regimen,glucose 116,fasting glucose in am
[2020-05-02 17:13] LABS: PH,URINE 8.5 (5.0-8.0); URINE APPEARANCE CLEAR; URINE BILIRUBIN NEGATIVE (NEGATIVE); URINE COLOR YELLOW; URINE GLUCOSE (UA) NEGATIVE (NEGATIVE); URINE KETONE NEGATIVE (NEGATIVE); URINE LEUK ESTERASE NEGATIVE (NEGATIVE); URINE NITRITE NEGATIVE (NEGATIVE); URINE PROTEIN NEGATIVE (NEGATIVE); URINE UROBILINOGEN 0.2 mg/dL (0.2-1.0)
[2020-05-02] MEDS: MELATONIN 5 MG TABLETS PO SCH (22:12)
[2020-05-02] MEDS: THIAMINE HCL 100 MG TABLET (FP) PO SCH (22:12)
[2020-05-03] MEDS ORDERED: LORazepam 0.5 MG TABLET PO PRN
[2020-05-03] MEDS: LORazepam 0.5 MG TABLET PO SCH ×4 (05:32→22:04)
[2020-05-03] MEDS: GABAPENTIN 300 MG CAPSULE PO SCH ×3 (05:32→22:04)
[2020-05-03] MEDS ORDERED: METHADONE HCL 5 MG TABLET (FOR DETOX USE ONLY) ONE (09:05)
[2020-05-03] MEDS ORDERED: METHADONE HCL 10 MG TABLET (FOR DETOX USE ONLY) ONE (09:05)
[2020-05-03] MEDS ORDERED: METHADONE (DETOX) 10 MG, METHADONE (DETOX) 5 MG PO ONE (10:00)
[2020-05-03] MEDS: PRENATAL VITAMINS W/ FOLIC ACID TABLET (FP) PO SCH (10:35)
[2020-05-03] MEDS: NICOTINE POLACRILEX 2 MG GUM BUC PRN ×2 (10:36→17:42)
[2020-05-03] MEDS: NICOTINE 21 MG/24 HOURS TOPICAL PATCH TD SCH (10:36)
--- NOTE | 2020-05-03 10:40 | PN ---
S CIWA - CIWA Score Nausea/Vomitin-Mild Nausea/No Vomiting Muscle Tremors: 2 Anxiety: 2 Agitation: 2 Paroxysmal Sweats: No Perspiration Orientation: 0-Oriented Tacttile Disturbances: 0-None Auditory Disturbances: 0-None Visual Disturbances: 0-None Headache: 1-Very Mild CIWA-Ar Total Score: 8 BHS COWS - Scale Resting Pulse: 0= [place] 80 or Below Sweatin= No chills or Flushing Restless Observation: 0= Sits Still Pupil Size: 1= Pupils >than Normal Bone or Joint Aches: 2= Severe Diffuse Aches Runny Nose/ Eye Tearin= Nasal Congestion GI Upset > 30mins: 1= Stomach Cramp Tremor Observation of Outstretched Hands: 2= Slight Tremor Visible Yawning Observation: 0= None Anxiety or Irritability: 2=Irritable/Anxious Goose Flesh Skin: 0=Smooth Skin COWS Score: 9 BHS Progress Note (SOAP) Subjective: alert,irritable,anxious,interrupted sleep,tremor,pain in the body and back Objective: 05/03/20 16:21 Vital Signs Temperature 97.7 F 05/03/20 12:35 Pulse Rate 74 05/03/20 12:35 Respiratory Rate 18 05/03/20 12:35 Blood Pressure 120/82 05/03/20 12:35 O2 Sat by Pulse Oximetry (%) 99 05/03/20 12:35 Laboratory Last Values WBC 5.2 K/mm3 (4.0-10.0) 05/01/20 08:00 RBC 4.37 M/mm3 (4.00-5.60) 05/01/20 08:00 Hgb 12.9 GM/dL (11.7-16.9) 05/01/20 08:00 Hct 38.6 % (35.4-49) 05/01/20 08:00 MCV 88.4 fl (80-96) 05/01/20 08:00 MCH 29.6 pg (25.7-33.7) 05/01/20 08:00 MCHC 33.5 g/dl (32.0-35.9) 05/01/20 08:00 RDW 13.6 % (11.9-15.9) 05/01/20 08:00 Plt Count 211 K/MM3 (134-434) 05/01/20 08:00 MPV 9.1 fl (7.5-11.1) 05/01/20 08:00 Sodium 143 mmol/L (136-145) 05/01/20 08:00 Potassium 4.2 mmol/L (3.5-5.1) 05/01/20 08:00 Chloride 108 mmol/L (98-107) H 05/01/20 08:00 Carbon Dioxide 31 mmol/L (21-32) 05/01/20 08:00 Anion Gap 4 MMOL/L (8-16) L 05/01/20 08:00 BUN 11.0 mg/dL (7-18) 05/01/20 08:00 Creatinine 0.9 mg/dL (0.55-1.3) 05/01/20 08:00 Est GFR (CKD-EPI)AfAm 131.44 05/01/20 08:00 Est GFR (CKD-EPI)NonAf 113.41 05/01/20 08:00 Random Glucose 116 mg/dL (74-106) H 05/01/20 08:00 Fasting Glucose 84 mg/dL (74-106) 05/03/20 07:50 Calcium 8.5 mg/dL (8.5-10.1) 05/01/20 08:00 Total Bilirubin < 0.1 mg/dL (0.2-1) L 05/01/20 08:00 AST 20 U/L (15-37) 05/01/20 08:00 ALT 19 U/L (13-61) 05/01/20 08:00 Alkaline Phosphatase 75 U/L (45-117) 05/01/20 08:00 Total Protein 5.9 g/dl (6.4-8.2) L 05/01/20 08:00 Albumin 3.0 g/dl (3.4-5.0) L 05/01/20 08:00 Urine Color Yellow 05/02/20 14:39 Urine Appearance Clear 05/02/20 14:39 Urine pH 8.5 (5.0-8.0) H 05/02/20 14:39 Ur Specific [place] 1.010 (1.010-1.035) 05/02/20 14:39 Urine Protein Negative (NEGATIVE) 05/02/20 14:39 Urine Glucose (UA) Negative (NEGATIVE) 05/02/20 14:39 Urine Ketones Negative (NEGATIVE) 05/02/20 14:39 Urine Blood Negative (NEGATIVE) 05/02/20 14:39 Urine Nitrite Negative (NEGATIVE) 05/02/20 14:39 Urine Bilirubin Negative (NEGATIVE) 05/02/20 14:39 Urine Urobilinogen 0.2 mg/dL (0.2-1.0) 05/02/20 14:39 Ur Leukocyte Esterase Negative (NEGATIVE) 05/02/20 14:39 Syphilis Serology Non-reactive (NONREACTIVE) 05/01/20 08:00 COVID-19 (JALYN) Not detected (Not Detected) 04/30/20 19:45 Assessment: 05/03/20 16:22 withdrawal symptom Plan: continue detox methadone and ativan regimen
[2020-05-03] MEDS: MELATONIN 5 MG TABLETS PO SCH (22:04)
[2020-05-03] MEDS: THIAMINE HCL 100 MG TABLET (FP) PO SCH (22:04)
[2020-05-04] MEDS ORDERED: LORazepam 0.5 MG TABLET PO ONE (05:00)
[2020-05-04] MEDS: GABAPENTIN 300 MG CAPSULE PO SCH ×3 (05:12→22:03)
--- NOTE | 2020-05-04 08:51 | PN ---
[facility] CIWA - CIWA Score Nausea/Vomitin-No Nausea/No Vomiting Muscle Tremors: None Anxiety: 1-Mildly Anxious Agitation: 1-Slight > Activity Paroxysmal Sweats: No Perspiration Orientation: 0-Oriented Tacttile Disturbances: 1-Very Mild Itch/Numbness Auditory Disturbances: 0-None Visual Disturbances: 0-None Headache: 1-Very Mild CIWA-Ar Total Score: 4 S COWS - Scale Resting Pulse: 1= [place] 81-100 Sweatin= No chills or Flushing Restless Observation: 0= Sits Still Pupil Size: 0= Normal to Room Light Bone or Joint Aches: 1= Mild Discomfort Runny Nose/ Eye Tearin= Nasal Congestion GI Upset > 30mins: 1= Stomach Cramp Tremor Observation of Outstretched Hands: 2= Slight Tremor Visible Yawning Observation: 0= None Anxiety or Irritability: 2=Irritable/Anxious Goose Flesh Skin: 0=Smooth Skin COWS Score: 8 [facility] Progress Note (SOAP) Subjective: alert,irritable,anxious,interrupted sleep,aching pain body Objective: 05/04/20 14:51 Vital Signs Temperature 97.5 F L 05/04/20 12:50 Pulse Rate 81 05/04/20 12:50 Respiratory Rate 18 05/04/20 12:50 Blood Pressure 113/78 05/04/20 12:50 O2 Sat by Pulse Oximetry (%) 99 05/04/20 12:50 Assessment: 05/04/20 14:52 withdrawal symptom Plan: continue detox methadone and ativan regimen,discharge in am
[2020-05-04] MEDS ORDERED: METHADONE HCL 10 MG TABLET (FOR DETOX USE ONLY) PO ONE (10:00)
[2020-05-04] MEDS: PRENATAL VITAMINS W/ FOLIC ACID TABLET (FP) PO SCH (10:01)
[2020-05-04] MEDS: NICOTINE 21 MG/24 HOURS TOPICAL PATCH TD SCH (10:01)
[2020-05-04] MEDS: METHOCARBAMOL 500 MG TABLET PO PRN ×2 (10:03→22:03)
[2020-05-04 21:14] VITALS: TEMP 97.3
[2020-05-04] MEDS: THIAMINE HCL 100 MG TABLET (FP) PO SCH (22:02)
[2020-05-04] MEDS: MELATONIN 5 MG TABLETS PO SCH (22:03)
[2020-05-05] MEDS: GABAPENTIN 300 MG CAPSULE PO SCH (05:22)
[2020-05-05] MEDS ORDERED: METHADONE HCL 5 MG TABLET (FOR DETOX USE ONLY) PO ONE (06:00)
[2020-05-05 06:24] VITALS: BP 106/68; PULSE 60
--- NOTE | 2020-05-05 13:21 | DS ---
[facility] Detox Discharge Summary Admission Date: 04/30/20 Discharge Date: 05/05/20 - History Present History: Opioid Dependence, Sedative Dependence Additional Comments: As per H&P: "30 yo presents w/ opioid and anxiolytic withdrawal, seeking detox. Has a current prescription for Suboxone. States hasn't taken in 2 months, despite picking up medication. States he spoke to his provider and told he did not need/want Suboxone anymore. Patient consents to having provider called in a.m. States provider is in [facility]". Pt is medically cleared and discharged today. Pt completed the detox protocol. Pt is encouraged to follow-up with an outpatient CD program and also to follow- up with his pmd which he verbalized understanding. Pt is AOX3, in no acute respiratory distress, Full ROM, and ambulatory. Pertinent Past History: h/o benzo and heroin use disorder. - Physical Exam Results Vital Signs: Vital Signs Temperature 97.3 F L 05/05/20 06:23 Pulse Rate 60 05/05/20 06:23 Respiratory Rate 18 05/05/20 06:23 Blood Pressure 106/68 05/05/20 06:23 O2 Sat by Pulse Oximetry (%) 97 05/05/20 06:23 Vital Signs 05/05/20 06:23 Temperature 97.3 F L Pulse Rate 60 Respiratory 18 Rate Blood Pressure 106/68 O2 Sat by Pulse 97 Oximetry (%) Laboratory Last Values WBC 5.2 K/mm3 (4.0-10.0) 05/01/20 08:00 RBC 4.37 M/mm3 (4.00-5.60) 05/01/20 08:00 Hgb 12.9 GM/dL (11.7-16.9) 05/01/20 08:00 Hct 38.6 % (35.4-49) 05/01/20 08:00 MCV 88.4 fl (80-96) 05/01/20 08:00 MCH 29.6 pg (25.7-33.7) 05/01/20 08:00 MCHC 33.5 g/dl (32.0-35.9) 05/01/20 08:00 RDW 13.6 % (11.9-15.9) 05/01/20 08:00 Plt Count 211 K/MM3 (134-434) 05/01/20 08:00 MPV 9.1 fl (7.5-11.1) 05/01/20 08:00 Sodium 143 mmol/L (136-145) 05/01/20 08:00 Potassium 4.2 mmol/L (3.5-5.1) 05/01/20 08:00 Chloride 108 mmol/L (98-107) H 05/01/20 08:00 Carbon Dioxide 31 mmol/L (21-32) 05/01/20 08:00 Anion Gap 4 MMOL/L (8-16) L 05/01/20 08:00 BUN 11.0 mg/dL (7-18) 05/01/20 08:00 Creatinine 0.9 mg/dL (0.55-1.3) 05/01/20 08:00 Est GFR (CKD-EPI)AfAm 131.44 05/01/20 08:00 Est GFR (CKD-EPI)NonAf 113.41 05/01/20 08:00 Random Glucose 116 mg/dL (74-106) H 05/01/20 08:00 Fasting Glucose 84 mg/dL (74-106) 05/03/20 07:50 Calcium 8.5 mg/dL (8.5-10.1) 05/01/20 08:00 Total Bilirubin < 0.1 mg/dL (0.2-1) L 05/01/20 08:00 AST 20 U/L (15-37) 05/01/20 08:00 ALT 19 U/L (13-61) 05/01/20 08:00 Alkaline Phosphatase 75 U/L (45-117) 05/01/20 08:00 Total Protein 5.9 g/dl (6.4-8.2) L 05/01/20 08:00 Albumin 3.0 g/dl (3.4-5.0) L 05/01/20 08:00 Urine Color Yellow 05/02/20 14:39 Urine Appearance Clear 05/02/20 14:39 Urine pH 8.5 (5.0-8.0) H 05/02/20 14:39 Ur Specific [place] 1.010 (1.010-1.035) 05/02/20 14:39 Urine Protein Negative (NEGATIVE) 05/02/20 14:39 Urine Glucose (UA) Negative (NEGATIVE) 05/02/20 14:39 Urine Ketones Negative (NEGATIVE) 05/02/20 14:39 Urine Blood Negative (NEGATIVE) 05/02/20 14:39 Urine Nitrite Negative (NEGATIVE) 05/02/20 14:39 Urine Bilirubin Negative (NEGATIVE) 05/02/20 14:39 Urine Urobilinogen 0.2 mg/dL (0.2-1.0) 05/02/20 14:39 Ur Leukocyte Esterase Negative (NEGATIVE) 05/02/20 14:39 Syphilis Serology Non-reactive (NONREACTIVE) 05/01/20 08:00 COVID-19 (JALYN) Not detected (Not Detected) 04/30/20 19:45 Labs noted. Pertinent Admission Physical Exam Findings: withdrawal symptoms. - Treatment Hospital Course: Detox Protocol Followed, Detoxed Safely, Responded well, Disch arged Condition Good - Medication Discharge Medications: Ambulatory Orders Gabapentin [Neurontin -] 600 mg PO TID 04/30/20 - Diagnosis (1) Opioid dependence with withdrawal Status: Acute (2) Sedative, hypnotic or anxiolytic dependence with withdrawal, uncomplicated Status: Acute - AMA Did Patient Leave Against Medical Advice: No
== END 2020-05-05 09:12 | disposition home or self-care (01) | DRG 773 ==
LOC: YASAS 16:20 → Y3N 19:03
PROVIDERS: ADMIT Allergy & Immunology; ATTEND Allergy & Immunology
PROC: HZ2ZZZZ Detoxification Services for Substance Abuse Treatment (ICD-10-PCS; principal; 2020-04-30)
DX: F11.23 Opioid dependence with withdrawal (principal); F13.230 Sedative, hypnotic or anxiolytic dependence with withdrawal, uncomplicated; F14.20 Cocaine dependence, uncomplicated; F17.210 Nicotine dependence, cigarettes, uncomplicated; F41.9 Anxiety disorder, unspecified; F32.9 Major depressive disorder, single episode, unspecified; F43.10 Post-traumatic stress disorder, unspecified; G62.9 Polyneuropathy, unspecified; Z87.81 Personal history of (healed) traumatic fracture; Z56.0 Unemployment, unspecified; Z59.0 Homelessness
CPT/HCPCS: 36415; 80053; 81003; 82947; 85027; 86780; 93005; 93010; U0003